=== PATIENT | female | born 1950 | race Caucasian/White ===

== ENCOUNTER 2018-12-24 08:03 | Outpatient (CLI) | payer OTHER | END 2018-12-24 08:08 | disposition home or self-care (01) | LOC: SONOGRAMA 08:03 | DX: E04.1 Nontoxic single thyroid nodule (principal) ==

== ENCOUNTER 2022-08-01 06:07 | Day surgery (SDC) | payer OTHER ==
[~2022-08-01 06:07] MED LIST: AVAPRO300 MG PO; CARDIZEM CD180 M1 PO; CARDUR PO; CLONAZEPAM0.5 M1 PO; PROBIOTIC1 EAC4 PO; SINGULAIR10 MG PO; SYMBICORT 16010.2 GM IH; [UNRECOGNIZED DRUG - CODE]; [UNRECOGNIZED DRUG - OTHER] PO
== END 2022-08-01 14:00 | disposition home or self-care (01) ==
LOC: CIR.AMB 06:07
PROVIDERS: ATTEND Orthopaedic Surgery
DX: M75.121 Complete rotator cuff tear or rupture of right shoulder, not specified as traumatic (principal); M24.111 Other articular cartilage disorders, right shoulder; M75.41 Impingement syndrome of right shoulder; I10 Essential (primary) hypertension; J45.909 Unspecified asthma, uncomplicated; Z86.16 Personal history of COVID-19